=== PATIENT | male | born 1970 | race African-American/Black ===

== ENCOUNTER 2017-05-26 07:57 | Emergency (ER) | payer MEDICAID | END 2017-05-26 08:41 | disposition home or self-care (01) | LOC: D.ER 07:57 | DX: A54.01 Gonococcal cystitis and urethritis, unspecified (principal); F17.200 Nicotine dependence, unspecified, uncomplicated ==

== ENCOUNTER 2019-09-09 09:48 | Emergency (ER) | payer MEDICAID ==
[~2019-09-09] VITALS: Ht 188 cm; Wt 76.4 kg
[2019-09-09 09:56] VITALS: BP 142/76; Ht 188 cm; Wt 76.4 kg
[2019-09-09] MEDS ORDERED: ATARAX 25 MG TA25 MG PO (10:20)
[2019-09-09] MEDS ORDERED: PERMETHRIN60 GM TOPICAL (10:20)
== END 2019-09-09 10:34 | disposition home or self-care (01) ==
LOC: D.ER 09:48
DX: B86 Scabies (principal)

== ENCOUNTER 2019-09-27 12:56 | Emergency (ER) | payer MEDICAID ==
[~2019-09-27 12:56] MED LIST: ATARAX 25 MG TA25 MG PO; PERMETHRIN60 GM TOPICAL
[2019-09-27 13:02] VITALS: Ht 188 cm
[2019-09-27] MEDS ORDERED: BLEPH-105 ML EACH EYE (13:33)
[2019-09-27] MEDS ORDERED: PERMETHRIN60 GM TOPICAL (13:33)
[2019-09-27] MEDS ORDERED: ATARAX 25 MG TA25 MG PO (13:33)
[2019-09-27 13:48] VITALS: BP 126/64
== END 2019-09-27 13:49 | disposition home or self-care (01) ==
LOC: D.ER 12:56
DX: B86 Scabies (principal); H10.9 Unspecified conjunctivitis

== ENCOUNTER 2019-12-04 07:36 | Emergency (ER) | payer MEDICAID ==
[~2019-12-04] VITALS: Ht 188 cm; Wt 77.3 kg
[~2019-12-04 07:36] MED LIST changes: +BLEPH-105 ML EACH EYE
[2019-12-04 07:43] VITALS: Ht 188 cm; Wt 77.3 kg
[2019-12-04] MEDS ORDERED: PERMETHRIN60 GM TOPICAL (07:58)
[2019-12-04] MEDS ORDERED: BLEPH-105 ML EACH EYE (07:58)
[2019-12-04] MEDS ORDERED: ATARAX 25 MG TA25 MG PO (07:58)
[2019-12-04 08:09] VITALS: BP 142/80
== END 2019-12-04 08:09 | disposition home or self-care (01) ==
LOC: D.ER 07:36
DX: B86 Scabies (principal); H10.10 Acute atopic conjunctivitis, unspecified eye